=== PATIENT | male | born 1980 | race Caucasian/White ===

== ENCOUNTER 2018-08-23 03:28 | Emergency (ER) | payer OTHER ==
[2018-08-23] MEDS ORDERED: Aspirin 81 MG Tab.Chew PO ONE (04:30)
--- NOTE | 2018-08-23 05:31 | CRLCR ---
Indication: Chest pain Technique: Chest 1 view Comparison: None Findings/Impression: Cardiovascular and mediastinum: Heart size and vasculature are normal in caliber and appearance. Mediastinum is within normal limits. Lungs and pleural space: Lungs are clear. No sign of infiltrate or mass. No sign of pleural effusion. No pneumothorax. Bones and soft tissues: No significant findings. Dictated by Jeanne Cotton MD @ Aug 23 2018 5:29AM Signed by Dr. Jeanne Cotton @ Aug 23 2018 5:30AM
--- NOTE | 2018-08-23 07:03 | EDM.PDOC ---
ED HPI GENERAL MEDICAL PROBLEM - General Chief Complaint: Chest Pain Stated Complaint: CHEST PAIN Time Seen by Provider: 08/23/18 04:28 Source of Information: Reports: Patient History Limitations: Reports: No Limitations - History of Present Illness INITIAL COMMENTS - FREE TEXT/NARRATIVE: This patient comes in complaining of chest pain. It began about 2 or 2:30 AM this morning he awakened and his heart was racing and pounding. He thought his blood pressure was probably high. He took some Tylenol for 20 or 30 minutes his chest pain was about an 8 out of 10 and had gone down to 5-6 on arrival when I saw him he said it was just very minimum. There is no shortness of breath possibly a little bit of nausea. His grandfather had an ME otherwise no family history. The pain was in the left lower pectoral region kind of a squeezing pressure type of pain not worse when he breathes or moves left sided chest pain Pain Score (Numeric/FACES): 1 - Related Data Allergies Allergy/AdvReac Type Severity Reaction Status Date / Time omeprazole AdvReac Other Verified 08/23/18 03:54 Home Meds: Home Meds Propranolol HCl [Propranolol] 10 mg PO DAILY PRN 08/23/18 [History] Past Medical History Cardiovascular History: Reports: Hypertension Gastrointestinal History: Reports: GERD - Past Surgical History HEENT Surgical History: Reports: Tonsillectomy Social & Family History - Tobacco Use Smoking Status *Q: Never Smoker - Caffeine Use Caffeine Use: Reports: Coffee - Recreational Drug Use Recreational Drug Use: No ED ROS GENERAL - Review of Systems Review Of Systems: ROS reveals no pertinent complaints other than HPI. ED EXAM, GENERAL - Physical Exam Exam: See Below Exam Limited By: No Limitations General Appearance: Alert, WD/WN, No Apparent Distress Eye Exam: Bilateral Eye: Normal Inspection Throat/Mouth: Normal Inspection Respiratory/Chest: Lungs Clear Cardiovascular: Regular Rate, Rhythm, No Murmur GI/Abdominal: Non-Tender Neurological: Alert, Oriented Psychiatric: Normal Affect Skin Exam: Warm, Dry Lymphatic: No Adenopathy Course - Vital Signs Last Recorded V/S: Last Vital Signs Temp 35.8 C 08/23/18 03:52 Pulse 72 08/23/18 06:58 Resp 16 08/23/18 06:58 BP 124/77 08/23/18 06:58 Pulse Ox 96 08/23/18 06:58 - Orders/Labs/Meds Orders: Active Orders 24 hr Category Date Time Status EKG Documentation Completion [RC] ASDIRECTED Care 08/23/18 04:30 Active EKG Documentation Completion [RC] ASDIRECTED Care 08/23/18 05:50 Ordered EKG 12 Lead [EK] Urgent Ther 08/23/18 04:29 Ordered EKG 12 Lead [EK] Urgent Ther 08/23/18 06:30 Ordered Labs: Laboratory Tests 08/23/18 08/23/18 08/23/18 Range/Units 04:28 04:28 04:29 WBC 6.3 (4.5-11.0) K/uL RBC 4.40 (4.30-5.90) M/uL Hgb 15.1 H (12.0-15.0) g/dL Hct 41.3 (40.0-54.0) % MCV 94 (80-98) fL MCH 34 H (27-31) pg MCHC 37 H (32-36) % Plt Count 237 (150-400) K/uL Neut % (Auto) 50 (36-66) % Lymph % (Auto) 36 (24-44) % Lewis % (Auto) 11 H (2-6) % Eos % (Auto) 3 (2-4) % Baso % (Auto) 1 (0-1) % D-Dimer, Quantitative (0.0-400.0) ng/mL Sodium 138 L (140-148) mmol/L Potassium 3.6 (3.6-5.2) mmol/L Chloride 101 (100-108) mmol/L Carbon Dioxide 26 (21-32) mmol/L Anion Gap 14.6 H (5.0-14.0) mmol/L BUN 18 (7-18) mg/dL Creatinine 1.1 (0.8-1.3) mg/dL Est Cr Clr Drug Dosing 101.90 mL/min Estimated GFR (MDRD) > 60 (>60) Glucose 123 H (74-106) mg/dL Calcium 8.7 (8.5-10.1) mg/dL Total Bilirubin 0.4 (0.2-1.0) mg/dL AST 33 (15-37) U/L ALT 47 (12-78) U/L Alkaline Phosphatase 65 (46-116) U/L Troponin I < 0.017 (0.000-0.056) ng/mL Total Protein 7.7 (6.4-8.2) g/dL Albumin 4.0 (3.4-5.0) g/dL Globulin 3.7 H (2.3-3.5) g/dL Albumin/Globulin Ratio 1.1 L (1.2-2.2) 08/23/18 08/23/18 Range/Units 04:30 06:24 WBC (4.5-11.0) K/uL RBC (4.30-5.90) M/uL Hgb (12.0-15.0) g/dL Hct (40.0-54.0) % MCV (80-98) fL MCH (27-31) pg MCHC (32-36) % Plt Count (150-400) K/uL Neut % (Auto) (36-66) % Lymph % (Auto) (24-44) % Lewis % (Auto) (2-6) % Eos % (Auto) (2-4) % Baso % (Auto) (0-1) % D-Dimer, Quantitative < 100 (0.0-400.0) ng/mL Sodium (140-148) mmol/L Potassium (3.6-5.2) mmol/L Chloride (100-108) mmol/L Carbon Dioxide (21-32) mmol/L Anion Gap (5.0-14.0) mmol/L BUN (7-18) mg/dL Creatinine (0.8-1.3) mg/dL Est Cr Clr Drug Dosing mL/min Estimated GFR (MDRD) (>60) Glucose (74-106) mg/dL Calcium (8.5-10.1) mg/dL Total Bilirubin (0.2-1.0) mg/dL AST (15-37) U/L ALT (12-78) U/L Alkaline Phosphatase (46-116) U/L Troponin I < 0.017 (0.000-0.056) ng/mL Total Protein (6.4-8.2) g/dL Albumin (3.4-5.0) g/dL Globulin (2.3-3.5) g/dL Albumin/Globulin Ratio (1.2-2.2) Meds: Medications Discontinued Medications Generic Name Dose Route Start Last Admin Trade Name Derrick PRN Reason Stop Dose Admin Aspirin 324 mg 08/23/18 04:30 08/23/18 04:46 Aspirin PO 08/23/18 04:31 324 mg ONETIME ONE Administration - Re-Assessments/Exams Free Text/Narrative Re-Assessment/Exam: 08/23/18 07:02 First EKG shows sinus rhythm borderline inferior T abnormalities there some ST elevation thought to be early repolarization. Second EKG done at 6:30 AM 2-1/2 hours later shows a sinus rhythm at [address]pm [address] again the [address] elevation is unchanged. Initial troponin and d-dimer are negative. Second troponin was drawn it's 6:30 AM Departure - Departure Time of Disposition: 07:10 Disposition: Home, Self-Care 01 Condition: Fair Clinical Impression: Chest pain, Palpitations Referrals: PCP,None [Primary Care Provider] - Forms: ED Department Discharge Additional Instructions: If you have another episode of this chest pain and rapid heart rate it would be advisable to return to the emergency department. Most likely there is nothing serious causing it but there is always a small chance that it could be something serious and because of that you should get it checked out - My Orders Last 24 Hours: My Active Orders 08/23/18 04:29 EKG 12 Lead [EK] Urgent 08/23/18 04:30 EKG Documentation Completion [RC] ASDIRECTED 08/23/18 05:50 EKG Documentation Completion [RC] ASDIRECTED 08/23/18 06:30 EKG 12 Lead [EK] Urgent - Assessment/Plan Last 24 Hours: My Active Orders 08/23/18 04:29 EKG 12 Lead [EK] Urgent 08/23/18 04:30 EKG Documentation Completion [RC] ASDIRECTED 08/23/18 05:50 EKG Documentation Completion [RC] ASDIRECTED 08/23/18 06:30 EKG 12 Lead [EK] Urgent
== END 2018-08-23 07:18 | disposition home or self-care (01) ==
LOC: JP.ED 03:28
DX: R00.2 Palpitations (principal); R07.9 Chest pain, unspecified; I10 Essential (primary) hypertension; Z79.899 Other long term (current) drug therapy; Z88.8 Allergy status to other drugs, medicaments and biological substances
CPT/HCPCS: 36415; 71045; 80053; 84484; 85025; 85379; 93005; 99285; A9270